=== PATIENT | male | born 1990 | race Caucasian/White ===

== ENCOUNTER → 2017-06-29 | Outpatient (CLI) | payer BC ==
[~2017-06-29] MED LIST: IOHEXOL 180 MG/ML 10 ML VIAL.; LIDOCAINE 1% PF 2 ML VIAL.; methylPREDNISolone ACETATE 40 MG/ML VIAL.; methylPREDNISolone ACETATE 80 MG/ML VIAL.
== END | disposition home or self-care (01) ==
LOC: PNCL 07:24
DX: M51.16 Intervertebral disc disorders with radiculopathy, lumbar region (principal); K21.9 Gastro-esophageal reflux disease without esophagitis; Z79.899 Other long term (current) drug therapy; Z98.890 Other specified postprocedural states; Z83.3 Family history of diabetes mellitus; Z72.89 Other problems related to lifestyle
CPT/HCPCS: 62323; J1030; J1040; Q9965